=== PATIENT | male | born 1995 | race African-American/Black ===

== ENCOUNTER 2017-03-08 05:13 | Emergency (ER) | payer MEDICAID ==
[~2017-03-08] VITALS: Ht 170.2 cm; Wt 62.9 kg
[2017-03-08 05:14] VITALS: BP 111/71
[2017-03-08] MEDS ORDERED: LIDOCAINE 1%, 20ML SQ ONE (05:30)
[2017-03-08] MEDS ORDERED: BACITRACIN ZINC OINT 500U/GM, 0.9 GM ONE (06:39)
== END 2017-03-08 06:51 | disposition home or self-care (01) ==
LOC: ED 05:28
DX: S61.212A Laceration without foreign body of right middle finger without damage to nail, initial encounter (principal); S60.511A Abrasion of right hand, initial encounter; X58.XXXA Exposure to other specified factors, initial encounter; Y93.89 Activity, other specified; Y99.8 Other external cause status; Y92.89 Other specified places as the place of occurrence of the external cause
CPT/HCPCS: 12002

== ENCOUNTER 2017-11-01 12:05 | Emergency (ER) | payer MEDICAID, OTHER ==
[~2017-11-01] VITALS: Ht 170.2 cm; Wt 56.2 kg
[2017-11-01 12:16] VITALS: BP 119/79
[2017-11-01] MEDS ORDERED: HYDROcodone/APAP 5/325 TABLET PO ONE (13:00)
[2017-11-01] MEDS ORDERED: HYDROcodone/APAP 5/325 TABLET ONE (13:04)
== END 2017-11-01 13:37 | disposition home or self-care (01) ==
LOC: ED 13:25
DX: M26.30 Unspecified anomaly of tooth position of fully erupted tooth or teeth (principal)
CPT/HCPCS: 99283

== ENCOUNTER 2018-01-09 23:13 | Emergency (ER) | payer SELFPAY ==
[~2018-01-09] VITALS: Ht 172.7 cm; Wt 58.8 kg
[2018-01-09 23:16] VITALS: BP 109/66
== END 2018-01-10 00:34 | disposition home or self-care (01) ==
LOC: ED 23:52
DX: M79.641 Pain in right hand (principal)
CPT/HCPCS: 99284

== ENCOUNTER 2018-09-22 19:50 | Emergency (ER) | payer SELFPAY ==
[~2018-09-22] VITALS: Ht 170.2 cm; Wt 56.6 kg
[2018-09-22 20:10] VITALS: BP 110/67
--- NOTE | 2018-09-22 20:13 | NUR ---
URINE CUP AND INSTRUCTIONS FOR CLEAN CATCH GIVEN.
[2018-09-22] MEDS ORDERED: CEFTRIAXONE 250 MG IM ONE (20:30)
[2018-09-22] MEDS ORDERED: AZITHROMYCIN 500 MG TABLET PO ONE (20:30)
[2018-09-22] MEDS ORDERED: CEFTRIAXONE 250 MG ONE (21:40)
[2018-09-22] MEDS ORDERED: AZITHROMYCIN 250 MG TABLET ONE (21:43)
== END 2018-09-22 22:03 | disposition home or self-care (01) ==
LOC: ED 21:50
DX: A74.9 Chlamydial infection, unspecified (principal); A54.9 Gonococcal infection, unspecified
CPT/HCPCS: 87491; 87591; 96372; 99283; J0696

== ENCOUNTER 2019-10-13 10:20 | Emergency (ER) | payer SELFPAY ==
[~2019-10-13] VITALS: Ht 170.2 cm; Wt 53.2 kg
[2019-10-13 10:26] VITALS: BP 108/63
--- NOTE | 2019-10-13 10:36 | NUR ---
PT HERE FOR STD CHECK, STATES NO SYMPTOMS.
--- NOTE | 2019-10-13 10:54 | NUR ---
PER PA, DO NOT MEDICATE PT HAS NO SYMPTOMS, CULTURE RESULTS IN 48 HOURS AND WILL TREAT IF POSITIVE THEN.
--- NOTE | 2019-10-13 10:57 | NUR ---
Patient/Caregiver given discharge instructions and they have confirmed that they understand the instructions. Patient ambulatory with steady gait.
--- NOTE | 2019-10-13 10:57 | NUR ---
UA SENT TO LAB.
[2019-10-13] MEDS ORDERED: CEFTRIAXONE 250 MG IM ONE (11:00)
[2019-10-13] MEDS ORDERED: AZITHROMYCIN 500 MG TABLET PO ONE (11:00)
[2019-10-13 11:15] LABS: MICROSCOPIC NOT IND
[2019-10-13 11:17] LABS: CULTURE INDICATED? NO
== END 2019-10-13 10:59 | disposition home or self-care (01) ==
LOC: ED 10:53
DX: Z20.2 Contact with and (suspected) exposure to infections with a predominantly sexual mode of transmission (principal)
CPT/HCPCS: 81003; 87491; 87591; 99283

== ENCOUNTER 2019-10-19 10:21 | Emergency (ER) | payer SELFPAY ==
[~2019-10-19] VITALS: Ht 170.2 cm; Wt 55.7 kg
[2019-10-19 10:39] VITALS: BP 105/60
[2019-10-19] MEDS ORDERED: AZITHROMYCIN 500 MG TABLET PO ONE (12:00)
[2019-10-19] MEDS ORDERED: AZITHROMYCIN 500 MG TABLET ONE (12:02)
== END 2019-10-19 12:11 | disposition home or self-care (01) ==
LOC: ED 11:50
DX: H10.022 Other mucopurulent conjunctivitis, left eye (principal); F17.200 Nicotine dependence, unspecified, uncomplicated
CPT/HCPCS: 99283

== ENCOUNTER 2020-11-30 09:11 | Emergency (ER) | payer MEDICAID ==
[~2020-11-30] VITALS: Ht 170.2 cm; Wt 58.8 kg
[2020-11-30 09:13] VITALS: BP 124/36
[2020-11-30] MEDS ORDERED: CEFTRIAXONE 1,000 MG ONE (09:50)
--- NOTE | 2020-11-30 10:03 | NUR ---
IM medication given with aseptic technique as secondary, tasking RN. Pt tolerated with some c/o pain.
[2020-11-30] MEDS ORDERED: FLUORESCEIN/BENOXINATE 5 ML DROPS OP ONE (10:30)
[2020-11-30] MEDS ORDERED: CEFTRIAXONE 1,000 MG IM ONE (10:30)
[2020-11-30] MEDS ORDERED: CEFTRIAXONE 250 MG IM ONE (10:30)
--- NOTE | 2020-11-30 10:46 | NUR ---
Patient given discharge instructions and they have confirmed that they understand the instructions. Patient ambulatory with steady gait.
== END 2020-11-30 10:48 | disposition home or self-care (01) ==
LOC: ED 10:18
DX: H10.022 Other mucopurulent conjunctivitis, left eye (principal); F17.210 Nicotine dependence, cigarettes, uncomplicated; Z20.2 Contact with and (suspected) exposure to infections with a predominantly sexual mode of transmission
CPT/HCPCS: 87491; 87591; 96372; 99283; 99406; J0696